=== PATIENT | female | born 1965 | race American Indian/Alaskan Native ===

== ENCOUNTER 2017-10-15 14:45 | Outpatient (CLI) | payer BC ==
--- NOTE | 2017-10-16 11:53 | Mammography Report ---
BILATERAL DIGITAL SCREENING MAMMOGRAM with CAD: 10/15/17 14:45:00 CLINICAL: Routine screening. COMPARISON: 05/29/16 FINDINGS: The breasts are mostly fatty with a few bilateral scattered fibroglandular densities.No mass, architectural distortion or suspicious calcifications. IMPRESSION: No mammographic evidence of malignancy. BI-RADS CATEGORY: 1 -- Negative RECOMMENDATION: Routine mammographic screening in one year. COMMENT: Patient follow-up letters are generated by our [employer] application.
== END 2017-10-15 14:46 | disposition home or self-care (01) ==
LOC: SPVWC 14:45
PROVIDERS: ATTEND Obstetrics & Gynecology
DX: Z12.31 Encounter for screening mammogram for malignant neoplasm of breast (principal); I10 Essential (primary) hypertension; E03.9 Hypothyroidism, unspecified; D64.9 Anemia, unspecified
CPT/HCPCS: 77067; G0202

== ENCOUNTER 2017-11-25 10:41 | Outpatient (CLI) | payer BC ==
--- NOTE | 2017-11-25 11:54 | Ultrasound Report ---
ABDOMINAL ULTRASOUND: 11/25/17 10:41:00 CLINICAL: Thrombocytopenia FINDINGS: High-resolution ultrasound demonstrates a normal liver with normal size, contour and overall echogenicity.. No liver mass. Normal hepatic vasculature and inferior vena cava. Normal gallbladder and bile ducts. The gallbladder wall measures 2.0mm. The common bile duct measures 3.0 mm diameter. The pancreas is not optimally imaged due to bowel gas obscuring the body and tail. The pancreatic head is normal. Normal abdominal aorta. A normal spleen measures 9.6 x 4.0 x 3.2 cm.cm. Normal kidneys with normal echogenicity and normal non-dilated renal collecting systems and ureters. The right kidney measures 11.1 x 4.4 x 4.4cm. The left kidney measures 10.3 x 5.4 x 4.9cm. No renal mass or calculus. No ascites or mass. IMPRESSION: Normal abdomen with a normal size spleen. Limited imaging of the pancreas.
== END 2017-11-25 10:42 | disposition home or self-care (01) ==
LOC: SPVWC 10:41
PROVIDERS: ATTEND Internal Medicine Hematology & Oncology
DX: D69.6 Thrombocytopenia, unspecified (principal); R10.31 Right lower quadrant pain
CPT/HCPCS: 76700

== ENCOUNTER 2022-05-02 11:44 | Outpatient (CLI) | payer BC ==
--- NOTE | 2022-05-03 16:48 | Mammography Report ---
DIGITAL SCREENING MAMMOGRAM WITH CAD, 05/02/2022 CLINICAL INFORMATION / INDICATION: Routine screening mammography. TECHNIQUE: Digital bilateral 2D mammography was obtained in the craniocaudal and mediolateral obliqu e projections. This examination was interpreted with the benefit of Computer-Aided Detection analysis . COMPARISON: 10/15/2017, 06/22/2016, 05/26/2015 FINDINGS: Breast Density: The breasts are almost entirely fatty. No dominant mass, suspicious calcifications, or architectural distortion in either breast. There has been no significant interval change. IMPRESSION: No mammographic evidence of malignancy. Follow up recommendation: Routine yearly screening mammogram. BI-RADS Category 1: NEGATIVE A "normal" or negative report should not discourage follow up or biopsy of a clinically significant f inding. A written summary of these findings will be mailed to the patient. The patient will be entered into a mammography reporting system which will generate a reminder letter for the patient's next appointmen t at the appropriate interval. The [employer] recommends yearly mammograms starting at age 40 and continuing as l cristiane as a woman is in good health. Breast MRI is recommended for women with an approximate 20-25% or greater lifetime risk of breast cancer, including women with a strong family history of breast or ova khoa cancer or who have been treated for Hodgkin's disease. Signer Name: Milana Lang MD Signed: 05/03/2022 4:44 PM Workstation Name: [id number]
== END 2022-05-02 11:45 | disposition home or self-care (01) ==
LOC: SPVWC 11:44
PROVIDERS: ATTEND Obstetrics & Gynecology
DX: Z12.31 Encounter for screening mammogram for malignant neoplasm of breast (principal)
CPT/HCPCS: 77067